=== PATIENT | male | born 1985 | race African-American/Black ===

== ENCOUNTER 2020-01-24 22:04 | Emergency (ER) | payer OTHER ==
[~2020-01-24] VITALS: Ht 175.3 cm; Wt 86.2 kg
[2020-01-24 22:05] VITALS: BP_SYST 118
[2020-01-24] MEDS ORDERED: NACL 0.9% 1,000 ML IV ONE (22:08)
[2020-01-24] MEDS ORDERED: ONDANSETRON HCL 4 MG/2 ML VIAL IVP ONE (22:15)
[2020-01-24] MEDS ORDERED: ASPIRIN 81 MG TAB.CHEW PO ONE (22:15)
[2020-01-24 22:40] LABS: BILIRUBIN,URINE NEGATIVE (NEGATIVE); BLOOD, URINE NEGATIVE (NEGATIVE); CLARITY/URINE CLEAR (CLEAR); COLOR,URINE YELLOW (YELLOW); GLUCOSE,URINE NEGATIVE (NEGATIVE); KETONES,URINE NEGATIVE (NEGATIVE); LEUKOCYTE ESTERASE ,URINE NEGATIVE (NEGATIVE); NITRITE, URINE NEGATIVE (NEGATIVE); PROTEIN URINE NEGATIVE (NEGATIVE); UROBILINOGEN,URINE 0.2 (0.2-1.0)
[2020-01-24 22:40] LABS: BASOPHILS % (AUTO) 0.7 % (0.0-2.0); EOSINOPHILS # (AUTO) 0.1 K/uL (0.0-0.4); HEMATOCRIT 41.9 % (36-54); HEMOGLOBIN 13.8 g/dL (14.0-18.0); LYMPHOCYTES # (AUTO) 2.2 K/uL (1.0-5.5); MEAN CORPUSCULAR HEMOGLOBIN 27 pg (27-31); MEAN CORPUSCULAR HGB CONC 33 % (32-36); MEAN CORPUSCULAR VOLUME 83 fL (79.0-98.0); MONOCYTES # (AUTO) 0.9 K/uL (0.0-1.0); MONOCYTES % (AUTO) 13.8 % (1.7-9.3); NEUTROPHILS # (AUTO) 2.9 K/uL (1.8-7.7); NEUTROPHILS % (AUTO) 47.5 % (40.0-70.0); PLATELET COUNT (AUTO) 270 K/uL (130-430); RED BLOOD CELL COUNT(AUTO) 5.04 MIL/uL (4.2-6.2); RED CELL DISTRIBUTION WIDTH 14.7 % (9.0-15.0); WHITE BLOOD COUNT (AUTO) 6.2 K/uL (4.8-10.8)
[2020-01-24 22:57] LABS: INR 1.1 (0.80-1.20); PROTHROMBIN TIME 11.5 SECS (9.5-12.5)
[2020-01-24 23:04] LABS: CALCIUM 8.4 mg/dL (8.4-11.0); CREATININE 1.41 mg/dL (0.55-1.30); POTASSIUM 3.6 mmol/L (3.5-5.1)
[2020-01-24 23:10] LABS: ALBUMIN 3.4 g/dL (3.4-4.8); TOTAL BILIRUBIN 0.5 mg/dL (0.0-1.0)
[2020-01-24 23:31] LABS: CKMB RELATIVE INDEX 0.5 (0.0-2.9); CREATINE KINASE MB 2.5 ng/mL (0-3.6)
[2020-01-24 23:45] VITALS: BP_SYST 127
== END 2020-01-24 23:45 | disposition home or self-care (01) ==
LOC: SED 22:04
DX: E86.0 Dehydration (principal); R42 Dizziness and giddiness; I10 Essential (primary) hypertension; I51.9 Heart disease, unspecified; Z88.6 Allergy status to analgesic agent
CPT/HCPCS: 36415; 71045; 80053; 81003; 82150; 82550; 82553; 83690; 83880; 84484; 85025; 85610; 85730; 86710; 93005; 96361; 96374; 99285; J2405; J7030

== ENCOUNTER 2020-02-12 10:04 | Emergency (ER) | payer BC, OTHER ==
[~2020-02-12] VITALS: Ht 175.3 cm; Wt 86.2 kg
[2020-02-12 10:04] VITALS: BP_SYST 116
--- NOTE | 2020-02-12 10:04 | NUR ---
Placed in room 3. Placed on monitor and storage bin tender, blood pressure machine and pulse oximeter. To gown for exam. Side rails up. Report given to ANGELIA Shepherd.
--- NOTE | 2020-02-12 10:09 | NUR ---
ER at bedside examining patient.
--- NOTE | 2020-02-12 10:15 | NUR ---
PATIENT ARRIVED VIA POV, AAOX4, AMBULATORY WITH STEADY GAIT. PATIENT C/C OF LEFT SIDED CHEST PAIN. CURRENTLY 7/10 PRESSURE LIKE PAIN. PATIENT STATES ONSET OF PAIN WAS 2 HOURS AGO. PATIENT NOTES HIS LEGS FEELING "LIKE HIS LEGS DONT HAVE ENOUGH CIRCULATION" FOR THE PAST 2 DAYS. ORTHOPNEA AT NIGHT, SLEEPS ON MORE THAN 3 PILLOWS. PATIENT STATES DIFFICULTY BREATHING WITH LAYING FLAT. PATIENT NOTES 10/2017 PATIENT HAD FL, WITH 2 STENTS PLACED. PATIENT ON PLAVIX FOR BLOOD THINNING.
[2020-02-12] MEDS ORDERED: NITROGLYCERIN 0.4 MG TAB.SUBL SL ONE ×2 (10:30→10:52)
[2020-02-12] MEDS ORDERED: ASPIRIN 81 MG TAB.CHEW PO ONE (10:30)
--- NOTE | 2020-02-12 10:39 | NUR ---
NITROGLYCERIN GIVEN 1ST DOSE 04/20 PAIN BP 128/83 HR 77 97% ON ROOM AIR
--- NOTE | 2020-02-12 10:53 | NUR ---
2ND DOSE NITROGLYCERIN GIVEN 04/20 125/80 81 HR 96% ON ROOM AIR.
--- NOTE | 2020-02-12 11:08 | NUR ---
Patient refusing 3rd dose of nitro, headache is intense and feels like vomiting.
[2020-02-12 11:09] LABS: BASOPHILS % (AUTO) 0.9 % (0.0-2.0); EOSINOPHILS # (AUTO) 0.1 K/uL (0.0-0.4); HEMATOCRIT 46.4 % (36-54); HEMOGLOBIN 15.1 g/dL (14.0-18.0); LYMPHOCYTES # (AUTO) 1.4 K/uL (1.0-5.5); LYMPHOCYTES % (AUTO) 27.1 % (20.5-51.5); MEAN CORPUSCULAR HEMOGLOBIN 27 pg (27-31); MEAN CORPUSCULAR HGB CONC 33 % (32-36); MEAN CORPUSCULAR VOLUME 83 fL (79.0-98.0); MONOCYTES # (AUTO) 0.4 K/uL (0.0-1.0); MONOCYTES % (AUTO) 8.3 % (1.7-9.3); NEUTROPHILS # (AUTO) 3.1 K/uL (1.8-7.7); NEUTROPHILS % (AUTO) 62.7 % (40.0-70.0); PLATELET COUNT (AUTO) 305 K/uL (130-430); RED BLOOD CELL COUNT(AUTO) 5.58 MIL/uL (4.2-6.2)
[2020-02-12] MEDS ORDERED: ACETAMINOPHEN 500 MG TABLET PO ONE (11:15)
[2020-02-12] MEDS ORDERED: ONDANSETRON HCL 4 MG/2 ML VIAL IVP ONE (11:15)
--- NOTE | 2020-02-12 11:15 | NUR ---
Patient given IVP zofran for nausea and vomiting.
[2020-02-12 11:17] LABS: CALCIUM 8.7 mg/dL (8.4-11.0); CREATININE 1.12 mg/dL (0.55-1.30); POTASSIUM 3.8 mmol/L (3.5-5.1)
--- NOTE | 2020-02-12 11:17 | NUR ---
Patients pain level: 5/10, decreased in intensity of the chest pain, headache is throbbing in nature.
[2020-02-12 11:21] LABS: ALBUMIN 3.7 g/dL (3.4-4.8); PROTHROMBIN TIME 10.2 SECS (9.5-12.5); TOTAL BILIRUBIN 0.6 mg/dL (0.0-1.0)
--- NOTE | 2020-02-12 11:39 | NUR ---
Patient given PO tylenol for treatment of headache. Patient given blanket for comfort. Willl continue to follow up and monitor.
[2020-02-12 12:50] VITALS: BP_SYST 102
--- NOTE | 2020-02-12 12:50 | NUR ---
Patient given written and verbal discharge instructions and verbalizes understanding. ER MD discussed with patient the results and treatment provided. Patient in stable condition. ID arm band removed. IV catheter removed intact and dressing applied, no active bleeding. Rx not given. Patient educated on pain management and to follow up with PMD. Pain Scale 0/10. Opportunity for questions provided and answered. Medication side effect fact sheet provided.
== END 2020-02-12 12:50 | disposition home or self-care (01) ==
LOC: SED 10:04
DX: I20.8 Other forms of angina pectoris (principal); I10 Essential (primary) hypertension; Z88.6 Allergy status to analgesic agent; Z88.8 Allergy status to other drugs, medicaments and biological substances
CPT/HCPCS: 36415; 71045; 80053; 82550; 82962; 83605; 83880; 84484; 85025; 85610; 85730; 87040; 93005; 96374; 99285; J2405

== ENCOUNTER 2020-03-27 22:59 | Emergency (ER) | payer BC, OTHER ==
[~2020-03-27] VITALS: Ht 175.3 cm; Wt 86.2 kg
[2020-03-27 23:00] VITALS: BP_SYST 151
[2020-03-27] MEDS ORDERED: NACL 0.9% 1,000 ML IV ONE (23:42)
[2020-03-27] MEDS ORDERED: MORPHINE 4 MG/ML INJ. SYRINGE IVP ONE (23:45)
[2020-03-27] MEDS ORDERED: ONDANSETRON HCL 4 MG/2 ML VIAL IVP ONE (23:45)
[2020-03-28 00:09] LABS: BASOPHILS % (AUTO) 0.7 % (0.0-2.0); EOSINOPHILS # (AUTO) 0.1 K/uL (0.0-0.4); EOSINOPHILS % (AUTO) 1.8 % (0.0-4.0); HEMATOCRIT 44.3 % (36-54); HEMOGLOBIN 14.5 g/dL (14.0-18.0); LYMPHOCYTES # (AUTO) 2.3 K/uL (1.0-5.5); LYMPHOCYTES % (AUTO) 35.8 % (20.5-51.5); MEAN CORPUSCULAR HEMOGLOBIN 27 pg (27-31); MEAN CORPUSCULAR HGB CONC 33 % (32-36); MEAN CORPUSCULAR VOLUME 82 fL (79.0-98.0); MONOCYTES # (AUTO) 0.7 K/uL (0.0-1.0); MONOCYTES % (AUTO) 10.4 % (1.7-9.3); NEUTROPHILS # (AUTO) 3.3 K/uL (1.8-7.7); NEUTROPHILS % (AUTO) 51.3 % (40.0-70.0); PLATELET COUNT (AUTO) 275 K/uL (130-430); RED BLOOD CELL COUNT(AUTO) 5.39 MIL/uL (4.2-6.2); RED CELL DISTRIBUTION WIDTH 14.4 % (9.0-15.0); WHITE BLOOD COUNT (AUTO) 6.4 K/uL (4.8-10.8)
[2020-03-28 00:17] LABS: CALCIUM 8.9 mg/dL (8.4-11.0); CREATININE 1.21 mg/dL (0.55-1.30); POTASSIUM 3.7 mmol/L (3.5-5.1)
[2020-03-28 00:22] LABS: ALBUMIN 3.7 g/dL (3.4-4.8); TOTAL BILIRUBIN 0.4 mg/dL (0.0-1.0)
[2020-03-28] MEDS ORDERED: cefTRIAXone 1 GM IVPB PREMIX 50 ML IV ONE (01:15)
[2020-03-28 01:37] LABS: BILIRUBIN,URINE NEGATIVE (NEGATIVE); BLOOD, URINE NEGATIVE (NEGATIVE); CLARITY/URINE CLEAR (CLEAR); COLOR,URINE YELLOW (YELLOW); GLUCOSE,URINE NEGATIVE (NEGATIVE); KETONES,URINE NEGATIVE (NEGATIVE); LEUKOCYTE ESTERASE ,URINE NEGATIVE (NEGATIVE); NITRITE, URINE NEGATIVE (NEGATIVE); PH,URINE 6.5 (5.0-8.0); PROTEIN URINE NEGATIVE (NEGATIVE)
[2020-03-28] MEDS ORDERED: MORPHINE 4 MG/ML INJ. SYRINGE IVP ONE (07:15)
[2020-03-28 07:36] VITALS: BP_SYST 122
== END 2020-03-28 07:37 | disposition home or self-care (01) ==
LOC: SED 22:59
DX: I86.1 Scrotal varices (principal); N50.82 Scrotal pain; R11.2 Nausea with vomiting, unspecified; I10 Essential (primary) hypertension; Z86.73 Personal history of transient ischemic attack (TIA), and cerebral infarction without residual deficits; Z88.6 Allergy status to analgesic agent
CPT/HCPCS: 36415; 80053; 81003; 82150; 83605; 83690; 85025; 87040; 96365; 96375; 96376; 99285; J0696; J2270; J2405; J7030; 96361; 96374

== ENCOUNTER 2020-04-18 11:36 | Emergency (ER) | payer BC, OTHER ==
[2020-04-18 11:41] VITALS: BP_SYST 118
--- NOTE | 2020-04-18 11:55 | NUR ---
ER at bedside examining patient.
--- NOTE | 2020-04-18 11:55 | NUR ---
Pt ambulatory to bed, gait steady, waiting on further dispo by EDMD, no distress noted; pt requsting sheet
[2020-04-18] MEDS ORDERED: HYDR-4272 PO (11:58)
[2020-04-18] MEDS ORDERED: ONDANSETRON 4 MG ODT TAB PO ONE (12:15)
[2020-04-18] MEDS ORDERED: ONDANSETRON HCL 4 MG/2 ML VIAL IVP ONE (12:30)
[2020-04-18] MEDS ORDERED: NACL 0.9% 1,000 ML IV ONE (12:30)
--- NOTE | 2020-04-18 12:30 | NUR ---
MEDICATED WITH ANTIEMETIC WITH OBSERVED EFFECTIVENESS
--- NOTE | 2020-04-18 13:05 | NUR ---
DECREASED EPISODES OF EMESIS. PT CALM, ALERT, RESP UNLABORED, SKIN WARM AND DRY. STATES FEELING BETTER
[2020-04-18 14:45] VITALS: BP_SYST 107
--- NOTE | 2020-04-18 14:45 | NUR ---
Patient given written and verbal discharge instructions and verbalizes understanding. ER MD discussed with patient the results and treatment provided. Patient in stable condition. ID arm band removed. Rx of given. Patient educated on pain management and to follow up with PMD. Pain Scale 0/10 Opportunity for questions provided and answered. Medication side effect fact sheet provided.
== END 2020-04-18 14:45 | disposition home or self-care (01) ==
LOC: SED 11:36
DX: R11.2 Nausea with vomiting, unspecified (principal); I10 Essential (primary) hypertension; Z86.73 Personal history of transient ischemic attack (TIA), and cerebral infarction without residual deficits; Z88.6 Allergy status to analgesic agent; Z88.8 Allergy status to other drugs, medicaments and biological substances
CPT/HCPCS: 99283; Q0162